=== PATIENT | female | born 1970 | race Hispanic/Latino ===

== ENCOUNTER 2016-11-13 09:32 | Inpatient (IN) | payer MEDICARE ==
[2016-11-13 10:27] LABS: BASO # 0.1 K/uL (0.0-0.2); BASO % 0.9 % (0.0-2.0); EOS # 0.1 K/uL (0.0-0.7); EOS % 1.4 % (0.0-4.0); HEMATOCRIT 40.7 % (34.0-47.0); LYMPH # 1.1 K/uL (1.0-4.3); MEAN CELL VOLUME 91.4 fL (81.0-99.0); MEAN CORPUSCULAR HEMOGLOBIN 30.6 pg (27.0-31.0); MEAN CORPUSCULAR HGB CONC 33.5 g/dL (33.0-37.0); MEAN PLATELET VOLUME 9.8 fL (7.2-11.7); MONO # 0.7 K/uL (0.0-0.8); MONO % 9.7 % (0.0-10.0); WHITE BLOOD COUNT 7.3 K/uL (4.8-10.8)
[2016-11-13 10:51] LABS: CHLORIDE 109 mmol/L (98-107); POTASSIUM 3.9 mmol/L (3.6-5.2); SODIUM 144 mmol/L (132-148)
[2016-11-13 10:53] LABS: GFR AFRICAN-AMERICAN > 60
[2016-11-13 10:54] LABS: ALB/GLOB RATIO 1.8 (1.0-2.1); ALKALINE PHOSPHATASE 72 U/L (38-126); ALT/SGPT 25 U/L (9-52); AST/SGOT 40 U/L (14-36); BLOOD UREA NITROGEN 18 mg/dL (7-17); CALCIUM 9.3 mg/dl (8.6-10.4); CARBON DIOXIDE 22 mmol/L (22-30); GLUCOSE,RANDOM 85 mg/dL (65-105); TOTAL PROTEIN 6.5 g/dL (6.3-8.3)
[2016-11-13 10:55] LABS: ALCOHOL SERUM < 10 mg/dl (0-10)
--- NOTE | 2016-11-13 11:02 | C.PDOC ---
History Of Present Illness 46 y/o female presents to the ED with complaints of feeling "overwhelmed and anxious." Patient states she walked from [place] to [place] last night because she was feeling anxious. PMHx schizoaffective disorder, monthly IM injections. Denies SI, HI, hallucinations or any other physical complaints. Chief Complaint (Nursing): Psychiatric Evaluation History Per: Patient History/Exam Limitations: no limitations Onset/Duration Of Symptoms: Hrs Current Symptoms Are (Timing): Still Present Suicide/Self Injury Attempted (Context): None Severity: Mild Associated Symptoms: Anxiety. denies: Suicidal Thoughts Involuntary Hold By: None Recent travel outside of the [place]: No Past Medical History Reviewed: Historical Data, Nursing Documentation, Vital Signs Vital Signs: Last Vital Signs Temp 98.3 F 11/13/16 12:28 Pulse 93 H 11/13/16 15:57 Resp 18 11/13/16 13:51 BP 116/75 11/13/16 15:57 Pulse Ox 93 L 11/13/16 12:28 - Medical History PMH: Schizophrenia (schiz0-affective disorder) Surgical History: Cholecystectomy Family History: States: Unknown Family Hx - Social History Hx Alcohol Use: No Hx Substance Use: No - Immunization History Hx Tetanus Toxoid Vaccination: No Hx Influenza Vaccination: No Review Of Systems Except As Marked, All Systems Reviewed And Found Negative. Psych: Positive for: Anxiety. Negative for: Suicidal ideation Physical Exam - Physical Exam Appears: Non-toxic, No Acute Distress, Other (calm, cooperative) Skin: Warm, Dry, No Rash Head: Atraumatic, Normacephalic Chest: Symmetrical Cardiovascular: Rhythm Regular, No Murmur Respiratory: Normal Breath Sounds, No Rales, No Rhonchi, No Wheezing Extremity: Bilateral: Atraumatic Neurological/Psych: Oriented x3, Normal Speech ED Course And Treatment - Laboratory Results Result Diagrams: 11/13/16 10:01 11/13/16 10:01 O2 Sat by Pulse Oximetry: 93 (room air) Medical Decision Making Medical Decision Making: Plan: * labs, UA Disposition - Disposition Disposition: HOSPITALIZED Disposition Time: 14:00 Condition: STABLE - Clinical Impression Clinical Impression: Schizoaffective disorder - Scribe Statement The provider has reviewed the documentation as recorded by the Lan Low Provider Attestation: All medical record entries made by the Lan were at my direction and personally dictated by me. I have reviewed the chart and agree that the record accurately reflects my personal performance of the history, physical exam, medical decision making, and the department course for this patient. I have also personally directed, reviewed, and agree with the discharge instructions and disposition.
[2016-11-13 12:10] LABS: RBC URINE 1 /hpf (0-3); URINE BILIRUBIN NEGATIVE (NEGATIVE); URINE BLOOD NEGATIVE (NEGATIVE); URINE CALCIUM OXALATE CRYSTALS RARE /hpf (<OCC); URINE COLOR Amber (YELLOW); URINE GLUCOSE (UA) NORMAL (Normal); URINE KETONE 2+ mg/dL (NEGATIVE); URINE LEUKOCYTE ESTERASE NEG Leu/uL (Negative); URINE PROTEIN 1+ mg/dL (NEGATIVE); URINE URIC ACID CRYSTALS MOD /hpf (<OCC); URINE UROBILINOGEN NORMAL mg/dL (0.2-1.0); WBC URINE < 1 /hpf (0-5)
--- NOTE | 2016-11-14 12:42 | PCM.PSYCH ---
Initial Psychiatric Evaluation - Initial Psychiatric Evaluation Type of Admission: Voluntary Legal Status: Capacity Chief Complaint (in patient's own words): "I feel okay." History of Present Illness and Precipitating Events: Patient was seen and evaluated, chart reviewed and discussed with the nurse. The patient is a 46yo who identifies herself as nonbinary (neither male nor female). She states that she is single with no children and supports herself with disability checks. She says that she lives in an apartment in [place] alone. She states that she went to the hospital because her father suggested it but she never asked why. She says that her mood goes up and down and that it is hard to concentrate at times. She states that she is sleeping well now but in the past has had restless nights ranging from no sleep to 4- 5hrs of sleep a night. She complains of feeling hypersexual in which she has thoughts of sexualizing people but does not know when this began. She states that she went to 2 emergency rooms for urinary frequency and was given antibiotics but she says she has stopped taking them since coming here. She states that she was first hospitalized in June 1995 and was diagnosed with Schizoaffective disorder. She says she was hospitalized and diagnosed with Bipolar disorder in January 1996. She says that she experiences visual hallucinations in which she, "sees the face of Satan in another person's face" and also sees "glowing around their face". She also says she has been experiencing auditory hallucinations in which a static voice tells her to do things. She says that she also gets the urge to cough 3x whenever she does something well and she feels as though someone else is controlling her. She states that she believes this began in 2014 but she doesnt quite recall. She states that she has anxiety and feels the need to pace. She says that she frequently feels like walking and recently walked from [place] to [place] until the police drove her the rest of the way to a train station. She denies having racing thoughts, S/I, or H/I. However, she states that she has wanted to in the past but never attempted suicide. She also denies using drugs such as cocaine, heroin, and marijuana. She drinks alcohol occasionally and states that her last drink was in 2013. 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 She states that she is allergic to Tegretol and is taking Invega Sustenna as well as multivitamins and calcium supplements. The patient appears to be disorganized, and delusional. she appeared disheveled and unkempt. Patient she remained guarded about the details. She appeared depressed and reporting feelings of hopelessness and helplessness. Family psych history: Mother- Depression Supportive therapy and psychoeducation were given. Current Medications: Active Medications Generic Name Dose Route Start Last Admin Trade Name Freq PRN Reason Stop Dose Admin Benztropine Mesylate 2 mg 11/13/16 14:38 Cogentin PO Q6 PRN Extra Pyramidal Symptoms Diphenhydramine HCl 50 mg 11/13/16 14:38 Benadryl PO Q6 PRN Extra Pyramidal Symptoms Haloperidol 5 mg 11/13/16 14:38 Haldol PO Q8 PRN Moderate Agitation Haloperidol Lactate 5 mg 11/13/16 14:38 Haldol IM Q8 PRN Moderate Agitation Hydroxyzine HCl 25 mg 11/13/16 14:39 Atarax PO Q6 PRN Agitation Pneumococcal Polyvalent Vaccine 0.5 ml 11/15/16 10:00 Pneumovax 23 Vaccine IM 11/15/16 10:01 .ONCE ONE Trazodone HCl 50 mg 11/13/16 16:06 Desyrel PO HS PRN Insomnia Past Psychiatric History - Past Psychiatric History Previous Treatment History: Inpatient Pertinent Medical Hx (Current Medical&Sleep Prob, Allergies): Allergies Allergy/AdvReac Type Severity Reaction Status Date / Time carbamazepine [From Tegretol] Allergy RASH Verified 11/13/16 09:45 Paliperidone Palmitate [Invega Sustenna] 156 mg Q30D 11/13/16 Review of Systems - Review of Systems All systems: reviewed and no additional remarkable complaints except - Psychiatric Psychiatric: Abnormal Sleep Pattern, Anxiety, Auditory Hallucinations, Paranoia , Suicidal Ideation, Visual Hallucinations. absent: Homicidal Ideation Mental Status Examination - Personal Presentation Personal Presentation: Looks stated age - Affect Affect: Constricted - Motor Activity Motor Activity: Calm - Reliability in Providing Information Reliability in Providing Information: Poor, due to alteration in thoughts, Poor , due to altered mood - Speech Speech: Disorganized - Mood Mood: Depressed, Anxious - Formal Thought Process Formal Thought Process: Delusions, Paranoia, Loosening of associations - Hallucinations/Delusions Hallucinations: Visual, Auditory - Obsessions/Compulsions Obsessions: No Compulsions: No - Cognitive Functions Orientation: Person, Place, Situation, Time Sensorium: Alert Attention/Concentration: Attentive Abstract Thinking: [place] Estimate of Intelligence: Below average Judgement: Imparied, as evidence by: Poor judgement, Imparied, as evidence by: Lack of insight into illness - Risk Risk: Diminished functioning - Strength & Assets Inventory Strength & Assets Inventory: Cooperative - Limitations Limitations: Living alone DSM 5 DX - DSM 5 DSM 5 Diagnosis: Schizoaffective Disorder depressed type - Recommended/Plan of Treatment Treatment Recommendations and Plan of Treatment: Schizoaffective Disorder depressed type CBT Attend groups and activities daily Support and psychoeducation Risperdal 1 mg by mouth BID Cogentin 1 mg PO BID Trazodone 50 mg by mouth QHS
[2016-11-15] MEDS ORDERED: Pneumococcal 23-Valent Vaccine IM ONE (10:00)
--- NOTE | 2016-11-15 15:34 | PCM.PYCHPN ---
Psychiatric Progress Note - Psychiatric Progress Note Patient seen today, length of contact: 15 min Patient Chief Complaint: "I feel okay." Problems Identified/Issues Discussed: Patient seen and evaluated, chart reviewed and discussed with the nurse. Patient remained disorganized and paranoid. Patient remained isolated, confined and withdrawn. She still reports of hearing voices. She reports depressed mood and feelings of hopelessness and helplessness. She is taking medication and denies any side effects. Supportive therapy and psychoeducation were given. Medication Change: Yes (increase risperdal) Medical Record Reviewed: Yes Mental Status Examination - Cognitive Function Orientation: Person, Place, Situation, Time Memory: Intact Attention: Poor Concentration: Poor Association: Loose Fund of Knowledge: Poor - Mood Mood: Depressed, Anxious - Affect Affect: Constricted - Formal Thought Process Formal Thought Process: Hallucinations, Delusions, Paranoia, Loosening of associations - Suicidal Ideation Suicidal Ideation: No - Homicidal Ideation Homicidal Ideation: No Goal/Treatment Plan - Goal/Treatment Plan Need for Continued Stay: Discharge may exacerbated symptoms, Severe functional impairment Progress Toward Problem(s) and Goals/Treatment Plan: Schizoaffective Disorder depressive type CBT Attend groups and activities daily Support and psychoeducation Risperidone 1mg PO BID Cogentin 1 mg by mouth twice a day Trazodone 50 mg by mouth daily at bedtime
--- NOTE | 2016-11-16 12:45 | PCM.PYCHPN ---
Psychiatric Progress Note - Psychiatric Progress Note Patient seen today, length of contact: 15 min Patient Chief Complaint: "I feel okay." Problems Identified/Issues Discussed: Patient seen and evaluated, chart reviewed and discussed with the nurse. Patient remained disorganized and paranoid. Patient remained isolated, confined and withdrawn. She still reports of hearing voices. She reports depressed mood and feelings of hopelessness and helplessness. She is taking medication and denies any side effects. Supportive therapy and psychoeducation were given. Medication Change: Yes (increase risperdal) Medical Record Reviewed: Yes Mental Status Examination - Cognitive Function Orientation: Person, Place, Situation, Time Memory: Intact Attention: Poor Concentration: Poor Association: Loose Fund of Knowledge: Poor - Mood Mood: Depressed, Anxious - Affect Affect: Constricted - Formal Thought Process Formal Thought Process: Hallucinations, Delusions, Paranoia, Loosening of associations - Suicidal Ideation Suicidal Ideation: No - Homicidal Ideation Homicidal Ideation: No Goal/Treatment Plan - Goal/Treatment Plan Need for Continued Stay: Discharge may exacerbated symptoms, Severe functional impairment Progress Toward Problem(s) and Goals/Treatment Plan: Schizoaffective Disorder depressive type CBT Attend groups and activities daily Support and psychoeducation Risperidone 1mg PO daily Risperidone 2mg PO HS Cogentin 1 mg by mouth twice a day Trazodone 50 mg by mouth daily at bedtime
[2016-11-17 07:36] VITALS: O2SAT 99
--- NOTE | 2016-11-17 09:50 | PCM.PYCHPN ---
Psychiatric Progress Note - Psychiatric Progress Note Patient seen today, length of contact: 15 min Patient Chief Complaint: "I am feeling better." Problems Identified/Issues Discussed: Patient seen and evaluated, chart reviewed and discussed with the nurse. As per the staff, patient is improving and stabilizing. Today patient appears much better than yesterday. However she is still pacing back and forth in the hallways and counting her steps. She appears more organized and less paranoid and delusional than yesterday. Patient remained isolated, confined and withdrawn. However, she is taking medication and denies any side effects. Supportive therapy and psychoeducation were given. Medication Change: Yes (increase risperdal) Medical Record Reviewed: Yes Mental Status Examination - Cognitive Function Orientation: Person, Place, Situation, Time Memory: Intact Attention: WNL Concentration: WNL Association: Loose Fund of Knowledge: Poor - Mood Mood: Depressed, Anxious - Affect Affect: Constricted - Speech Speech: Soft - Formal Thought Process Formal Thought Process: Delusions, Paranoia, Loosening of associations - Suicidal Ideation Suicidal Ideation: No - Homicidal Ideation Homicidal Ideation: No Goal/Treatment Plan - Goal/Treatment Plan Need for Continued Stay: Discharge may exacerbated symptoms, Severe functional impairment Progress Toward Problem(s) and Goals/Treatment Plan: Schizoaffective Disorder depressive type CBT Attend groups and activities daily Support and psychoeducation Risperidone 2 mg PO BID Cogentin 1 mg by mouth twice a day Trazodone 50 mg by mouth daily at bedtime - Smoking Cessation Smoking Cessation Initiated: No
--- NOTE | 2016-11-18 09:31 | PCM.PYCHPN ---
Psychiatric Progress Note - Psychiatric Progress Note Patient seen today, length of contact: 15 min Patient Chief Complaint: "OK" Problems Identified/Issues Discussed: The pt is seen, chart reviewed, case discussed with staff. The pt is compliant with medications and reports no side-effects. Symptoms are improving but needs more time to stabilize. He is odd, isolated, pacing the [place] aimlessly and speaks in an odd way. After care discussed, support and psychoeducation given. Medication Change: No Medical Record Reviewed: Yes Mental Status Examination - Cognitive Function Orientation: Person, Place, Situation, Time Memory: Intact Attention: Poor Concentration: Poor Association: Loose Fund of Knowledge: Poor - Mood Mood: Depressed, Anxious - Affect Affect: Constricted - Speech Speech: Soft - Formal Thought Process Formal Thought Process: Hallucinations, Delusions, Paranoia, Loosening of associations - Suicidal Ideation Suicidal Ideation: No - Homicidal Ideation Homicidal Ideation: No Goal/Treatment Plan - Goal/Treatment Plan Need for Continued Stay: Discharge may exacerbated symptoms, Severe functional impairment Progress Toward Problem(s) and Goals/Treatment Plan: Continue medications Support and psychoeducation daily Attend groups and activities daily After care planning by MOODY Estimated Date of D/C: 11/20/16
[2016-11-19 08:07] VITALS: RESP 20
--- NOTE | 2016-11-19 23:38 | PCM.PYCHPN ---
Psychiatric Progress Note - Psychiatric Progress Note Patient seen today, length of contact: 16 min Patient Chief Complaint: "I'm fine" Problems Identified/Issues Discussed: The pt is seen, chart reviewed, case discussed with staff. Support given. No new symptoms reported, improving slowly and needs some more time He is still oddly related, isolated, could be internally preoccupied. He just walks non-stop, but denies akathisia No SEs from medications, risks discussed. After care discussed Medication Change: No Medical Record Reviewed: Yes Mental Status Examination - Cognitive Function Orientation: Person, Place, Situation, Time Memory: Intact Attention: Poor Concentration: Poor Association: Loose Fund of Knowledge: Poor - Mood Mood: Depressed, Anxious - Affect Affect: Constricted - Speech Speech: Soft - Formal Thought Process Formal Thought Process: Hallucinations, Delusions, Paranoia, Loosening of associations - Suicidal Ideation Suicidal Ideation: No - Homicidal Ideation Homicidal Ideation: No Goal/Treatment Plan - Goal/Treatment Plan Need for Continued Stay: Discharge may exacerbated symptoms, Severe functional impairment Progress Toward Problem(s) and Goals/Treatment Plan: Continue medications Support and psychoeducation daily Attend groups and activities daily After care planning by MOODY Estimated Date of D/C: 11/20/16
[2016-11-20 07:54] VITALS: BP 100/65; PULSE 63; TEMP 97.4
--- NOTE | 2016-11-20 09:59 | PCM.PYCHDC ---
Mental Status Examination - Mental Status Examination Orientation: Person, Place, Situation, Time Memory: Intact Mood: Neutral Affect: Constricted Speech: Soft Attention: WNL Concentration: WNL Association: WNL Fund of Knowledge: WNL Formal Thought Process: No Impairment Description of patient's judgement and insight: good, fair Psychotic Thoughts and Behaviors: denies any AVH Suicidal Ideation: No Current Homicidal Ideation?: No Discharge Summary - Discharge Note Reason for Hospitalization: Patient was seen and evaluated, chart reviewed and discussed with the nurse. The patient is a 46yo who identifies herself as nonbinary (neither male nor female). She states that she is single with no children and supports herself with disability checks. She says that she lives in an apartment in [place] alone. She states that she went to the hospital because her father suggested it but she never asked why. She says that her mood goes up and down and that it is hard to concentrate at times. She states that she is sleeping well now but in the past has had restless nights ranging from no sleep to 4- 5hrs of sleep a night. She complains of feeling hypersexual in which she has thoughts of sexualizing people but does not know when this began. She states that she went to 2 emergency rooms for urinary frequency and was given antibiotics but she says she has stopped taking them since coming here. She states that she was first hospitalized in June 1995 and was diagnosed with Schizoaffective disorder. She says she was hospitalized and diagnosed with Bipolar disorder in January 1996. She says that she experiences visual hallucinations in which she, "sees the face of Satan in another person's face" and also sees "glowing around their face". She also says she has been experiencing auditory hallucinations in which a static voice tells her to do things. She says that she also gets the urge to cough 3x whenever she does something well and she feels as though someone else is controlling her. She states that she believes this began in 2014 but she doesnt quite recall. She states that she has anxiety and feels the need to pace. She says that she frequently feels like walking and recently walked from [place] to [place] until the police drove her the rest of the way to a train station. She denies having racing thoughts, S/I, or H/I. However, she states that she has wanted to in the past but never attempted suicide. She also denies using drugs such as cocaine, heroin, and marijuana. She drinks alcohol occasionally and states that her last drink was in 2013. 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 She states that she is allergic to Tegretol and is taking Invega Sustenna as well as multivitamins and calcium supplements. The patient appears to be disorganized, and delusional. she appeared disheveled and unkempt. Patient she remained guarded about the details. She appeared depressed and reporting feelings of hopelessness and helplessness. Consultations:: List each consultation separately and include: 1. Reason for request. 2. Findings. 3. Follow-up Summary of Hospital Course include:: 1. Description of specific treatment plan utilized for patients during their course of treatmen. 2. Summarize the time- course for resolution of acute symptoms and/or regressed behaviors. 3. Describe issues identified and worked on during hospitalization. 4. Describe medication utilized. 5. Describe medical problems identified and treated. 6. Reassessment of suicide risk Summary of Hospital Course: During the course of his stay, patient (pt) started progressively improving and he no longer remained irritable, depressed, suicidal and paranoid. His mood and paranoia were improved and he started attending groups and meetings and started socializing. Patient denied any feelings of hopelessness, helplessness, and worthlessness, denied any problem with the sleep or appetite, denied suicidal ideation or homicidal ideation. Pt denied any auditory or visual hallucinations. Some changes were made in his current medications and patient was discharged on following medications. He tolerated these medications very well and denied any side effects. He was discharged with a plan to follow up with Nadia Garzon. - Final Diagnosis (DSM 5) Condition upon Discharge: STABLE DSM 5: Schizoaffective Disorder depressive type Disposition: HOME/ ROUTINE Follow-up Treatment Plan: Education: Pt was educated and counseled about the risks and benefits of taking and not taking medications. Pt was educated and counseled about the risks of drinking and abusing drugs. Pt was educated and counseled to go to the ER or call 911 if pt develop suicidal ideation or homicidal ideation, worsening of symptoms or severe side effects of the meds. Prescriptions/Medication Reconciliation: Benztropine [Cogentin] 1 mg PO BID #60 tab risperiDONE [RisperDAL Tab] 2 mg PO BID #60 tab traZODone [Desyrel] 50 mg PO HS PRN #30 tab PRN Reason: Insomnia - Smoking Cessation Smoking Cessation Medication prescribed: No - Antipsychotic Medications Pt discharged on 2 or more routine antipsychotic medications: No
== END 2016-11-20 12:44 | disposition home or self-care (01) | DRG 885 ==
LOC: C.ER 09:32 → C.5E 12:33
PROVIDERS: ADMIT Psychiatry & Neurology Psychiatry; ATTEND Psychiatry & Neurology Psychiatry
PROC: GZ3ZZZZ Medication Management (ICD-10-PCS; principal; 2016-11-13)
PROC: GZHZZZZ Group Psychotherapy (ICD-10-PCS; 2016-11-13)
PROC: GZ56ZZZ Individual Psychotherapy, Supportive (ICD-10-PCS; 2016-11-13)
DX: F25.1 Schizoaffective disorder, depressive type (principal)